=== PATIENT | male | born 1970 | race Caucasian/White ===

== ENCOUNTER 2023-04-13 14:06 | Outpatient (AMB) | payer OTHER, SELFPAY ==
[2023-04-13 14:16] VITALS: BP 106/70; PULSE 62; O2SAT 97; BMI 25.4
--- NOTE | 2023-04-13 14:16 | A.OFFVIS_ITS ---
Intake Vital Signs 04/13/23 14:16 Height 5 ft 6 in Weight 157 lb 6 oz BMI 25.4 BP 106/70 Blood Pressure Location Rt brachial Position Sitting Pulse 62 Pulse Source Pulse Oximeter Pulse Oximetry (%) 97 Oxygen Delivery Method Room Air Intake Visit Reasons: Seizure disorder-confirmed Intake Note: Pt presents in office as a NPV for seizure disorder. Network Project Manager Required: No Allergies No Known Allergies Allergy (Verified 04/13/23 14:20) Medication List - Last Reconciled 04/13/23 by Trish Aparicio MD acamprosate mg PO acetaminophen ER 650 mg PO TID atorvastatin 10 mg PO DAILY cyanocobalamin (vitamin B-12) 1,000 mcg PO DAILY ferrous sulfate 325 mg PO BID levetiracetam 750 mg PO BID lisinopril 20 mg PO DAILY metoprolol tartrate 25 mg PO BID sertraline 50 mg PO DAILY trazodone 50 mg PO BEDTIME warfarin mg PO HPI HPI Comments History of Present Illness Details 52y/o male comes for further management of seizures. He was diagnosed with superior Sagittal sinus thrombosis about 6 years ago >( not clear) he also had seizures at that time and was started on keppra and coumadin since then. He has h/o alcohol abuse and had breakthrough seizures when he was drunk . He stopped drinking for about 3 years. 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 His sleep schedule is different everyday. He goes to sleep whenever he is tired. Poor historian- confused with dtaes He says he lost his driving license and gun license few years ago .He was drinking heavily at that time. [facility] Medical History (Updated 04/13/23 @ 14:59 by Trish Aparicio MD) Seizure disorder Anxiety Insomnia Left leg DVT B12 deficiency Fatty liver HTN (hypertension) Thrombosis, superior sagittal sinus Surgical History S/P anal fissurectomy Presence of vena cava filter Family History Father Hypertension COPD (chronic obstructive pulmonary disease) Mother Hypertension Social History Alcohol intake: former Patient Tobacco Use Status: Former Tobacco user Substance Use Type: Marijuana Physical Exam Vital Signs: Last Vital Signs Pulse 62 04/13/23 14:16 BP 106/70 04/13/23 14:16 Pulse Ox 97 04/13/23 14:16 Oxygen Delivery Method Room Air 04/13/23 14:16 BMI result Body Mass Index 25.4 Const General: cooperative, healthy appearing, comfortable and no acute distress Nutritional Appearance: average body habitus Orientation/consciousness: patient oriented x3 Limitations: no limitations Eyes Pupils: Equal, round and reactive pupils present Neuro General: patient oriented x3, tone normal, moves all extremities and no focal motor deficits Cranial nerves: Yes Facial sensation intact/muscles of mastication intact, Yes Equal, round and reactive pupils present, Yes Bilaterally intact EOM present, Yes Nystagmus not present, Yes Normal facial strength present, Yes Midline tongue present, Yes Symmetric palate elevation present and Yes Ability to bilaterally elevate shoulders present Cognition (Neuro): normal cognition Gait exam (Neuro): Normal gait present Motor exam (neuro): 5/5 motor strength present throughout and Normal motor muscle tone present throughout Deep tendon reflexes (DTR's): Right triceps reflex intensity grade: 1+, Left triceps reflex intensity grade: 1+, Rt Biceps (C5, C6): 1+, Left biceps reflex intensity grade: 1+, Right brachioradialis reflex intensity grade: 1+, Left brachioradialis reflex intensity grade: 1+, Right patellar reflex intensity grade: 2+ and Left patellar reflex intensity grade: 1+ Coordination: [id number] test normal Psych Affect: Anxious affect present Assessment & Plan Assessment & Plan (1) Seizure disorder: Comment: secondary - sagittal sinus thrombosis Code(s): G40.909 - Epilepsy, unspecified, not intractable, without status epilepticus Plan Continue Keppra 750 mg bid EEG MRI Brain Orders: Orders MR head/brain wo con Today G40.909 - Epilepsy, unspecified, not intractable, without status epilepticus EEG awake and asleep Today G40.90 - Epilepsy, unspecified, not intractable, without status epilepticus Medications: New levetiracetam 750 mg PO BID 60 tabs 6RF Coding Level of Care Code New Pt Level 4 (82188) Diagnoses Seizure disorder G40.
== END 2023-04-13 15:17 | disposition home or self-care (01) ==
PROVIDERS: Visit Provider Psychiatry & Neurology Neurology
DX: G40.909 Epilepsy, unspecified, not intractable, without status epilepticus (principal)
CPT/HCPCS: 99204

== ENCOUNTER → 2023-04-13 14:06 | Outpatient (BNVA) | payer OTHER, SELFPAY | PROVIDERS: Visit Provider Psychiatry & Neurology Neurology | DX: G40.909 Epilepsy, unspecified, not intractable, without status epilepticus (principal); Z79.899 Other long term (current) drug therapy | CPT/HCPCS: 99202 ==

== ENCOUNTER 2023-08-15 10:23 | Outpatient (AMB) | payer MEDICARE, MEDICAID, SELFPAY ==
[2023-08-15 10:46] VITALS: BP 106/78; PULSE 54; O2SAT 98
--- NOTE | 2023-08-15 10:46 | MHC.OFFVIS ---
Intake Vital Signs 08/15/23 10:46 Height 5 ft 6 in BP 106/78 Blood Pressure Location Rt brachial Position Sitting Pulse 54 Pulse Source Pulse Oximeter Pulse Oximetry (%) 98 Oxygen Delivery Method Room Air Intake Visit Reasons: Seizure disorder - LVM Allergies No Known Allergies Allergy (Verified 08/15/23 10:46) Medication List - Last Reconciled 08/15/23 by Trish Aparicio MD acamprosate mg PO acetaminophen ER 650 mg PO TID atorvastatin 10 mg PO DAILY cyanocobalamin (vitamin B-12) 1,000 mcg PO DAILY ferrous sulfate 325 mg PO BID levetiracetam 750 mg PO BID lisinopril 20 mg PO DAILY metoprolol tartrate 25 mg PO BID sertraline 50 mg PO DAILY trazodone 50 mg PO BEDTIME warfarin mg PO HPI HPI Comments History of Present Illness Details 52y/o male comes follow up of seizures. He was diagnosed with superior Sagittal sinus thrombosis about 6 years ago >( not clear) he also had seizures at that time and was started on keppra and coumadin since then. He has h/o alcohol abuse and had breakthrough seizures when he was drunk . 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 His sleep schedule is different everyday. He goes to sleep whenever he is tired. Poor historian- confused with dates He says he lost his driving license and gun license few years ago .He was drinking heavily at that time. [facility] Medical History Seizure disorder Anxiety Insomnia Left leg DVT B12 deficiency Fatty liver HTN (hypertension) Thrombosis, superior sagittal sinus Surgical History S/P anal fissurectomy Presence of vena cava filter Family History Father Hypertension COPD (chronic obstructive pulmonary disease) Mother Hypertension Social History Alcohol intake: former Patient Tobacco Use Status: Former Tobacco user Substance Use Type: Marijuana Physical Exam Vital Signs: Last Vital Signs Pulse 54 01/10/24 10:46 BP 106/78 08/15/23 10:46 Pulse Ox 98 08/15/23 10:46 Oxygen Delivery Method Room Air 08/15/23 10:46 Const General: cooperative, healthy appearing, comfortable and no acute distress Nutritional Appearance: average body habitus Orientation/consciousness: patient oriented x3 Limitations: no limitations Eyes Pupils: Equal, round and reactive pupils present Neuro General: patient oriented x3, tone normal, moves all extremities and no focal motor deficits Cranial nerves: Yes Facial sensation intact/muscles of mastication intact, Yes Equal, round and reactive pupils present, Yes Bilaterally intact EOM present, Yes Nystagmus not present, Yes Normal facial strength present, Yes Midline tongue present, Yes Symmetric palate elevation present and Yes Ability to bilaterally elevate shoulders present Cognition (Neuro): normal cognition Gait exam (Neuro): Normal gait present Motor exam (neuro): 5/5 motor strength present throughout and Normal motor muscle tone present throughout Coordination: [id number] test normal Psych Affect: Anxious affect present Assessment & Plan Assessment & Plan (1) Seizure disorder: Comment: secondary - sagittal sinus thrombosis Code(s): G40.909 - Epilepsy, unspecified, not intractable, without status epilepticus Plan Continue Keppra 750 mg bid EEG - patient declined MRI Brain - normal Medications: Refilled levetiracetam 750 mg PO BID 60 tabs 6RF Coding Level of Care Code Est Pt Level 4 (96802) Diagnoses Seizure disorder G40.909
== END 2023-08-15 11:04 | disposition home or self-care (01) ==
PROVIDERS: Visit Provider Psychiatry & Neurology Neurology
DX: G40.909 Epilepsy, unspecified, not intractable, without status epilepticus (principal)
CPT/HCPCS: 99214

== ENCOUNTER → 2023-08-15 10:23 | Outpatient (BNVA) | payer MEDICARE, MEDICAID, SELFPAY | PROVIDERS: Visit Provider Psychiatry & Neurology Neurology | DX: G40.909 Epilepsy, unspecified, not intractable, without status epilepticus (principal) | CPT/HCPCS: 99212 ==

== ENCOUNTER 2024-06-30 11:33 | Outpatient (AMB) | payer MEDICARE, MEDICAID, SELFPAY ==
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
[2024-06-30 11:58] VITALS: BMI 23.1
== END 2024-06-30 12:21 | disposition home or self-care (01) ==
PROVIDERS: PCP Internal Medicine; Visit Provider Psychiatry & Neurology Neurology
DX: G40.909 Epilepsy, unspecified, not intractable, without status epilepticus (principal)
CPT/HCPCS: 99214

== ENCOUNTER → 2024-06-30 11:33 | Outpatient (BNVA) | payer MEDICARE, MEDICAID, SELFPAY | PROVIDERS: PCP Internal Medicine; Visit Provider Physician Assistant Medical | DX: G40.909 Epilepsy, unspecified, not intractable, without status epilepticus (principal); G08 Intracranial and intraspinal phlebitis and thrombophlebitis; Z02.4 Encounter for examination for driving license | CPT/HCPCS: 99212 ==

== ENCOUNTER 2024-08-18 10:19 | Outpatient (AMB) | payer MEDICARE, MEDICAID, SELFPAY ==
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
[2024-08-18 10:22] VITALS: BP 130/88; PULSE 50; O2SAT 99; BMI 24.0
== END 2024-08-18 10:50 | disposition home or self-care (01) ==
PROVIDERS: Visit Provider Psychiatry & Neurology Neurology
DX: G40.909 Epilepsy, unspecified, not intractable, without status epilepticus (principal)
CPT/HCPCS: 99214

== ENCOUNTER → 2024-08-18 10:19 | Outpatient (BNVA) | payer MEDICARE, MEDICAID, SELFPAY | PROVIDERS: Visit Provider Psychiatry & Neurology Neurology | DX: G40.909 Epilepsy, unspecified, not intractable, without status epilepticus (principal) | CPT/HCPCS: 99212 ==

== ENCOUNTER 2025-02-16 10:52 | Outpatient (AMB) | payer MEDICARE, MEDICAID, SELFPAY ==
--- OUTSIDE RECORDS SUMMARY | 2025-02-11 10:45 | XMS_ITS | Encounter Summary ---
Author Organization [facility] Address [address] [place] [address] Care Team Providers Care Warehouse Assembly Worker Name Role Phone Jacky Carlson MD Primary Care Provider [phone] Encounter Details Date Type Department Care Team (Latest Contact Info) Description 02/11/2025 10:45 AM EDT Anticoagulation - Warfarin Visit Coumadin Clinic - [address] [phone] Chronic deep vein thrombosis (DVT) of proximal vein of left lower extremity (CMS/HCC V24, CMS/HCC V28) (Primary Dx); Hx-TIA (transient ischemic attack); [facility] (current) use of anticoagulants Social History Tobacco Use Types Packs/Day Years Used Date Smoking Tobacco: Former Cigarettes 1 27 0 12/16/1988 - 2015 Smokeless Tobacco: Never Alcohol Use Standard Drinks/Week Comments Yes 0 (1 standard drink = 0.6 oz pur e alcohol) Sex and Gender Information Value Date Recorded Sex Assigned at Not on file Legal Sex Male 4:34 PM EST Gender Identity Not on file Sexual Orientation Not on file documented as of this encounter Plan of Treatment Upcoming Encounters Date Type Department Care Team (Latest Contact Info) Description 02/16/2025 1:00 PM EDT Office Visit [facility] Hematology Oncology [address] [place] [phone] Niharika Michelle, [address] [place] [address] 03/04/2025 11:15 AM EDT Office Visit Internal Medicine - [place] [address] [facility] [address] [place] [phone] Jacky Carlson MD [address] [place] [address] 03/11/2025 10:45 AM EDT Anticoagulation - Warfarin Visit [facility] [place] [address] [place] [address] 04/07/2025 11:00 AM EDT Office Visit Orthopedic Surgery - [place] [address] [place] [phone] Alicia Vickers PA [address] [place] [phone] documented as of this encounter Procedures Procedure Name Priority Date/Time Associated Diagnosis Comments POC PROTIME INR BLOOD Routine 02/11/2025 10:39 AM EDT Chronic deep vein thrombosis (DVT) of proximal vein of left lower extremity (CMS/HCC V24, CMS/HCC V28) Hx-TIA (transient ischemic attack) [facility] (current) use of anticoagulants documented in this encounter Results * POC Protime INR Blood (02/11/2025 10:39 AM EDT) Lot Number INR POC 2.7 Prothrombin Time POC Exp Date Blood 02/11/2025 10:3 9 AM EDT Dhiraj Ramirez MD POINT OF CARE TEST ENTER/EDIT ORDERABLES Final Result documented in this encounter Visit Diagnoses Diagnosis Chronic deep vein thrombosis (DVT) of proximal vein of left lower extremity (CMS/HCC V24, CMS/HCC V28)- Primary Hx-TIA (transient ischemic attack) Transient ischemic attack (TIA), and cerebral infarction without residual deficits 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
[2025-02-16 10:56] VITALS: BP 142/80; PULSE 51; O2SAT 99; BMI 23.4
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
--- OUTSIDE RECORDS SUMMARY | 2025-02-16 11:51 | XMS_ITS | Clinical Summary ---
Author Organization [facility] Address [address] [place] [address] Care Team Providers Care Avionics Manager Name Role Phone Jacky Carlson MD Primary Care Provider Unavailab le Allergies No known active allergies Medications Medication Sig Dispensed Refills Start Date End Date Status levETIRAcetam (KEPPRA) 750 MG tablet Take 1 tablet (750 mg total) by mouth 2 (two) times a day. 0 Active lisinopril (PRINIVIL,ZESTRIL) tablet 20 mg Take 1 tablet (20 mg total) by mouth daily. 0 Active sertraline (ZOLOFT) 50 MG tablet Take 1 tablet (50 mg total) by mouth daily. 0 Active Cyanocobalamin (VITAMIN B-12 PO) Take by mouth. 0 Act sly warfarin (COUMADIN) 5 MG tablet Take 1.5 mg by mouth daily. 0 Active metoprolol tartrate (LOPRESSOR) 25 MG tablet Take by mouth 2 (two) times a day. 0 Active Social History Tobacco Use Types Packs/Day Years Used Date Smoking Tobacco: Former Cigarettes Smokeless Tobacco: Never Alcohol Use Standard Drinks/Week Comments Not Currently 0 (1 standard drink = 0.6 oz pur e alcohol) Sex and Gender Information Value Date Recorded Sex Assigned at Not on file Gender Identity Not on file Sexual Orientation Not on file Job Start Date Occupation Industry Not on file Not on file Not on file Last Filed Vital Signs Vital Sign Reading Time Taken Comments Blood Pressure 140/78 10/24/2022 1:07 PM EDT Pulse 40 10/24/2022 1:07 PM EDT Temperature - - Respiratory Rate - - Oxygen Saturation 100% 10/24/2022 1:07 PM EDT Inhaled Oxygen Concentration - - Weight 74.1 kg (163 lb 6.4 oz) 10/24/2022 1:07 P M EDT Height 167.6 cm (5' 6 ) 10/24/2022 1:07 PM EDT Body Mass Index 26.37 10/24/2022 1:07 PM EDT Plan of Treatment Health Maintenance Due Date Last Done Comments Hepatitis B Vaccines (1 of 3 - 3-dose series) 1970 Hepatitis C Screening 1970 COVID-19 Vaccine (#1) 06/19/1971 Depression Screening 1982 Preventative Health Evaluation 1988 DTap / Tdap / Td (1 - Tdap) 1989 Colon Cancer Screening (Colonoscopy) 12/18/2015 Shingrix-Zoster Vaccine (1 of 2) 2020 Influenza Vaccine (#1) 2025 06/15/2015 Pneumococcal Vaccine Aged Out No long er eligible based on patient's age to complete this topic RSV Ped < 20 months Aged Out No longe r eligible based on patient's age to complete this topic Care Teams Avionics Manager Relationship Specialty Start Date End Date Jacky Carlson MD PCP - General Internal Medicine 06/05/22
== END 2025-02-16 11:21 | disposition home or self-care (01) ==
LOC: HO.HSMS 10:53
PROVIDERS: PCP Internal Medicine; Visit Provider Psychiatry & Neurology Neurology
DX: G40.909 Epilepsy, unspecified, not intractable, without status epilepticus (principal)
CPT/HCPCS: 99214

== ENCOUNTER → 2025-02-16 10:52 | Outpatient (BNVA) | payer MEDICARE, MEDICAID, SELFPAY | PROVIDERS: PCP Internal Medicine; Visit Provider Psychiatry & Neurology Neurology | DX: G40.909 Epilepsy, unspecified, not intractable, without status epilepticus (principal); Z79.01 Long term (current) use of anticoagulants; Z79.899 Other long term (current) drug therapy | CPT/HCPCS: 99212 ==